=== PATIENT | female | born 1980 | race Caucasian/White ===

== ENCOUNTER 2017-04-14 09:59 | Emergency (ER) | payer MEDICAID ==
[2017-04-14 10:24] VITALS: TEMP 99; O2SAT 99
--- NOTE | 2017-04-14 10:33 | ED PDOC ---
Arrival/HPI - General Chief Complaint: Upper Extremity Problem/Injury Time Seen by Provider: 04/14/17 10:29 Historian: Patient - History of Present Illness Narrative History of Present Illness (Text): 04/14/17 10:30 This 36 yo female with pmh depression, presents to this ED c/o right shoulder pain x 6 days. Patient stated pain started after falling on the floor at work 6 days ago. Patient stated she slipped and fell down on her right side. Patient locates pain for right elbow to right shoulder. Denies wrist pain, neck pain, rosa, loc, n/v, weakness, or abnormal gait. Time/Duration: Other (see hpi) Context: Work Past Medical History - Provider Review Nursing Documentation Reviewed: Yes - Infectious Disease Hx of Infectious Diseases: None - Cardiac Hx Cardiac Disorders: No - Pulmonary Hx Respiratory Disorders: No - Neurological Hx Neurological Disorder: No - HEENT Hx HEENT Disorder: No - Renal Hx Renal Disorder: No - Endocrine/Metabolic Hx Endocrine Disorders: No - Hematological/Oncological Hx Blood Disorders: No - Integumentary Hx Dermatological Disorder: No - Musculoskeletal/Rheumatological Hx Musculoskeletal Disorders: No - Gastrointestinal Hx Gastrointestinal Disorders: No - Genitourinary/Gynecological Hx Genitourinary Disorders: No - Psychiatric Hx Psychophysiologic Disorder: Yes Hx Depression: Yes Hx Substance Use: No - Anesthesia Hx Anesthesia: No Family/Social History - Physician Review Nursing Documentation Reviewed: Yes Family/Social History: Other (noncontributory) Smoking Status: Never Smoked Hx Alcohol Use: No Hx Substance Use: No Allergies/Home Meds Allergies/Adverse Reactions: Allergies No Known Allergies Allergy (Verified 04/14/17 10:07) Home Medications: Home Meds Medication Instructions Recorded Confirmed Escitalopram [Lexapro] 20 mg PO DAILY 08/23/16 04/14/17 Quetiapine Fumarate [Seroquel] 50 mg PO DAILY 08/23/16 04/14/17 Review of Systems - Review of Systems Constitutional: Normal. absent: Fatigue, Weight Change, Fevers Eyes: Normal ENT: Normal Respiratory: Normal. absent: SOB, Cough Cardiovascular: Normal. absent: Chest Pain Gastrointestinal: Normal. absent: Abdominal Pain, Nausea, Vomiting Genitourinary Female: Normal Musculoskeletal: Other (see hpi) Skin: Normal Neurological: Normal Endocrine: Normal Hemo/Lymphatic: Normal Psychiatric: Normal Physical Exam Vital Signs Temp Pulse Resp BP Pulse Ox 11/02/17 12:24 69 18 115/74 99 04/14/17 11:10 75 18 114/79 99 04/14/17 10:02 99 F 76 16 112/75 99 Temperature: Afebrile Blood Pressure: Normal Pulse: Regular Respiratory Rate: Normal Appearance: Positive for: Well-Appearing, Non-Toxic, Comfortable Pain Distress: None Mental Status: Positive for: Alert and Oriented X 3 - Systems Exam Head: Present: Atraumatic, Normocephalic, Other (no raccoon sign. No nair sign) Pupils: Present: PERRL, Other (no hyphema) Extroacular Muscles: Present: EOMI. No: Entrapment Conjunctiva: Present: Normal Ears: Present: Normal, NORMAL TM, Normal Canal, Other (no hemotympanum). No: Erythema, TM Bulging, Fluid, TM Perf Mouth: Present: Moist Mucous Membranes Pharnyx: Present: Normal. No: ERYTHEMA, EXUDATE, TONSILS ENLARGED Nose (External): Present: Atraumatic Nose (Internal): Present: Normal Inspection Neck: Present: Normal Range of Motion, Trachea Midline. No: Meningeal Signs, MIDLINE TENDERNESS, Paraspinal Tenderness Respiratory/Chest: Present: Clear to Auscultation, Good Air Exchange. No: Respiratory Distress, Accessory Muscle Use, Wheezes, Tender to Palpation Cardiovascular: Present: Regular Rate and Rhythm, Normal S1, S2. No: Murmurs Abdomen: Present: Normal Bowel Sounds. No: Tenderness, Distention, Peritoneal Signs Back: Present: Normal Inspection. No: CVA Tenderness, Midline Tenderness, Paraspinal Tenderness, Pain with Leg Raise Upper Extremity: Present: NORMAL PULSES, Tenderness (right deltoid tenderness on palpation.), Neurovascularly Intact, Capillary Refill < 2s. No: Cyanosis, Edema Lower Extremity: Present: Normal Inspection, CALF TENDERNESS, NORMAL PULSES, Normal ROM, Neurovascularly Intact, Capillary Refill < 2 s. No: Edema Neurological: Present: GCS=15, CN II-XII Intact, Speech Normal, Motor Func Grossly Intact, Normal Sensory Function, Normal Cerebellar Funct, Gait Normal, Memory Normal Skin: Present: Warm, Dry, Normal Color. No: Rashes Psychiatric: Present: Alert, Oriented x 3, Normal Insight, Normal Concentration Medical Decision Making ED Course and Treatment: 04/14/17 12:50 Patient is resting comfortably, and is in no acute distress. Patient was instructed to follow up with PMD in 1-2 days for further evaluation. Arm sling was ordered Re-evaluation Time: 12:51 Reassessment Condition: Re-examined, Improved - RAD Interpretation Narrative RAD Interpretations (Text): 04/14/17 11:10 Shoulder x-rays: Questionable scapular Fx.? 04/14/17 12:50 This report is currently processing and HAS NOT BEEN OFFICIALLY SIGNED BY THE PHYSICIAN - ESTIMATED TIME OF APPROVAL IS 04/14/2017 12:54. PROCEDURE: CT of the right upper extremity without contrast HISTORY: posterior shoulder pain r/o scapular Fx. COMPARISON: TECHNIQUE: CT of the right shoulder was performed in the axial plane with sagittal and coronal reconstructions. FINDINGS: There is no fracture or bony abnormality. There is no joint effusion. There is a small amount of air in right deltoid muscle. Is there a laceration or stab wound this area? There is no hemorrhage or fluid collection. IMPRESSION: No evidence of fracture Radiology Orders: 04/14/17 10:37 SHOULDER RIGHT [RAD] Stat 04/14/17 11:09 EXT UPPER W/O CONTRAST RIGHT [CT] Stat - Medication Orders Current Medication Orders: Discontinued Medications Ketorolac Tromethamine (Toradol) 30 mg IM STAT STA Stop: 04/14/17 10:39 Last Admin: 04/14/17 10:57 Dose: 30 mg [facility] Pain Assessment Document 04/14/17 10:57 (Rec: 04/14/17 11:02 [facility]-[id number]) Pain Reassessment Is this a pain reassessment? Yes Sleep Is patient sleeping during reassessment? No Presence of Pain Presence of Pain Yes Pain Scale Used Pain Scale Used Numeric Location Left, Right or Bilateral Right Upper or Lower Upper Pain Location Body Site Shoulder Arm Elbow Description Description Constant Intensity of Pain at present 4 Acceptable Level of Pain 1 Radiation Location Right shoulder to elbow Pain Behavior Guarding Withdrawal from Touch Grasping Site Rubbing Site Restlessness Facial Grimacing Aggravating Factors ADL's Changing Position Exercise/Activity Contant Alleviating Factors/Management Medication Techniques Alleviating Factors Medication IM Administration Charges Document 04/14/17 10:57 KELLI (Rec: 04/14/17 11:02 [facility]-[id number]) Charges for Administration # of IM Administrations 1 Re-Assess: [facility] Pain Assessment Document 04/14/17 11:48 RG (Rec: 04/14/17 11:50 RG [id number]) Pain Reassessment Is this a pain reassessment? Yes Sleep Is patient sleeping during reassessment? No Presence of Pain Presence of Pain Yes Pain Scale Used Pain Scale Used Numeric Location Left, Right or Bilateral Right Upper or Lower Upper Pain Location Body Site Shoulder Arm Elbow Description Description Sharp Intensity of Pain at present 4 Acceptable Level of Pain 1 Radiation Location Right shoulder to elbow Pain Behavior Guarding Irritability Withdrawal from Touch Rubbing Site Restlessness Aggravating Factors ADL's Changing Position Contant Alleviating Factors/Management Medication Techniques Position Change Elevation Alleviating Factors Inactivity Disposition/Present on Arrival - Present on Arrival Any Indicators Present on Arrival: No History of DVT/PE: No History of Uncontrolled Diabetes: No Urinary Catheter: No History of Decub. Ulcer: No History Surgical Site Infection Following: None - Disposition Have Diagnosis and Disposition been Completed?: Yes Diagnosis: Shoulder pain, right Disposition: HOME/ ROUTINE Disposition Time: 12:51 Patient Plan: Discharge Condition: GOOD Discharge Instructions (ExitCare): Shoulder Pain (ED) Additional Instructions: Call private doctor for follow up visit in 1-2 days. Take medication as instructed with food. return to emergency i symptoms worsen. Do not drive or operate machinery when taking Valium Prescriptions: Diazepam [Valium] 2 mg PO DAILY #5 tablet Famotidine [Pepcid] 40 mg PO DAILY #10 tablet Naproxen 500 mg PO BID PRN #14 tab PRN Reason: Pain, Severe (8-10) Referrals: Leigha Prado MD [Primary Care Provider] - Follow up with primary Forms: [employer] (Amharic), WORK NOTE
[2017-04-14 11:10] VITALS: RESP 18
[2017-04-14 12:24] VITALS: BP 115/74; PULSE 69
--- NOTE | 2017-04-14 12:51 | CT ---
PROCEDURE: CT of the right upper extremity without contrast HISTORY: posterior shoulder pain r/o scapular Fx. COMPARISON: TECHNIQUE: CT of the right shoulder was performed in the axial plane with sagittal and coronal reconstructions. FINDINGS: There is no fracture or bony abnormality. There is no joint effusion. There is a small amount of air in right deltoid muscle. Is there a laceration or stab wound this area? There is no hemorrhage or fluid collection. IMPRESSION: No evidence of fracture
--- NOTE | 2017-04-14 13:55 | RAD ---
PROCEDURE: Radiographs of the Right Shoulder HISTORY: pain s/p fall COMPARISON: No prior. FINDINGS: BONES: Normal. No fracture. JOINTS: Normal. Glenohumeral and acromioclavicular joints preserved. No osteoarthritis. SOFT TISSUES: Normal. OTHER FINDINGS: None. IMPRESSION: Normal radiographs of the right shoulder.
== END 2017-04-14 13:02 | disposition home or self-care (01) ==
LOC: ED 09:59
DX: M25.511 Pain in right shoulder (principal)
CPT/HCPCS: 73030; 73200; 81025; 96372; 99285; J1885

== ENCOUNTER 2017-09-09 16:28 | Emergency (ER) | payer MEDICAID ==
[2017-09-09 16:39] VITALS: BP 115/73; PULSE 88; RESP 18; TEMP 98.3; O2SAT 99
[2017-09-09] MEDS ORDERED: Oxycodone/Acetaminophen 5/325 mg Tab PO STA (16:45)
--- NOTE | 2017-09-09 17:13 | ED PDOC ---
Arrival/HPI - General Chief Complaint: Back Pain Time Seen by Provider: 09/09/17 16:33 Historian: Patient - History of Present Illness Narrative History of Present Illness (Text): 09/09/17 17:07 36yo female with with PMHx of depression who present with complaint of right flank and back pain x 2days. States right sided back pain radiates to her lower leg. Pain is worse with movement. she reports history of kidney stone. Notes that her previous pain resolved without any intervention. she denies fever, chills, nausea, vomiting, trauma, urinary symptoms, trauma. States she is currently having her period. Past Medical History - Provider Review Nursing Documentation Reviewed: Yes - Infectious Disease Hx of Infectious Diseases: None - Cardiac Hx Cardiac Disorders: No - Pulmonary Hx Respiratory Disorders: No - Neurological Hx Neurological Disorder: No - HEENT Hx HEENT Disorder: No - Renal Hx Renal Disorder: No - Endocrine/Metabolic Hx Endocrine Disorders: No - Hematological/Oncological Hx Blood Disorders: No - Integumentary Hx Dermatological Disorder: No - Musculoskeletal/Rheumatological Hx Musculoskeletal Disorders: No - Gastrointestinal Hx Gastrointestinal Disorders: No - Genitourinary/Gynecological Hx Genitourinary Disorders: No - Psychiatric Hx Psychophysiologic Disorder: Yes Hx Depression: Yes Hx Substance Use: No - Anesthesia Hx Anesthesia: No Family/Social History - Physician Review Nursing Documentation Reviewed: Yes Family/Social History: Unknown Family HX Smoking Status: Never Smoked Hx Alcohol Use: No Hx Substance Use: No Allergies/Home Meds Allergies/Adverse Reactions: Allergies No Known Allergies Allergy (Verified 09/09/17 16:37) Review of Systems - Physician Review All systems were reviewed & negative as marked: Yes - Review of Systems Constitutional: Normal Eyes: Normal ENT: Normal Respiratory: Normal Cardiovascular: Normal Gastrointestinal: Abdominal Pain. absent: Constipation, Diarrhea, Nausea, Vomiting, Hematochezia, Hematemesis Genitourinary Female: Normal Musculoskeletal: Back Pain Skin: Normal Neurological: Normal Endocrine: Normal Hemo/Lymphatic: Normal Psychiatric: Normal Physical Exam Vital Signs Reviewed: Yes Vital Signs Temp Pulse Resp BP Pulse Ox 09/09/17 16:34 98.3 F 88 18 115/73 99 Temperature: Afebrile Blood Pressure: Normal Pulse: Regular Respiratory Rate: Normal Appearance: Positive for: Well-Appearing, Non-Toxic, Comfortable Pain Distress: None Mental Status: Positive for: Alert and Oriented X 3 - Systems Exam Head: Present: Atraumatic, Normocephalic Pupils: Present: PERRL Extroacular Muscles: Present: EOMI Conjunctiva: Present: Normal Mouth: Present: Moist Mucous Membranes Neck: Present: Normal Range of Motion Respiratory/Chest: Present: Clear to Auscultation, Good Air Exchange. No: Respiratory Distress, Accessory Muscle Use Cardiovascular: Present: Regular Rate and Rhythm, Normal S1, S2. No: Murmurs Abdomen: Present: Tenderness (right flank tenderness), Normal Bowel Sounds. No : Distention, Peritoneal Signs, Rebound, Guarding, McBurney's Point Tender, Rovsing's Sign Present Back: Present: Paraspinal Tenderness (right paraspinous tenderness), Pain with Leg Raise (right leg). No: CVA Tenderness, Midline Tenderness Upper Extremity: Present: Normal Inspection. No: Cyanosis, Edema Lower Extremity: Present: Normal Inspection. No: Edema Neurological: Present: GCS=15, CN II-XII Intact, Speech Normal Skin: Present: Warm, Dry, Normal Color. No: Rashes Psychiatric: Present: Alert, Oriented x 3, Normal Insight, Normal Concentration Medical Decision Making ED Course and Treatment: 09/09/17 18:44 Pt's pain is reproducible in ED. Her symptom and exam is more like MS in nature. Pt however reprot history of kidney stone and abdominal/pelvis CT was ordered to r/o renal colic. Abdominal /pelvis CT IMPRESSION: Incidental horseshoe kidney. No evidence of urinary calculus or urinary tract obstruction. Pt have UTI. she was treated with Keflex. Result was DW the pt. Her pain improved in ED with medication. she was ambulatory and have no focal neurological deficit. She was DC and referred to her PDM. - Lab Interpretations Lab Results: Lab Results 09/09/17 17:20: Urine Color Yellow, Urine Appearance Sl cloudy, Urine pH 7.0, Ur Specific [place] 1.015, Urine Protein Negative, Urine Glucose (UA) Negative, Urine Ketones Negative, Urine Blood Moderate H, Urine Nitrate Negative, Urine Bilirubin Negative, Urine Urobilinogen 0.2, Ur Leukocyte Esterase Small H, Urine RBC 2 - 5, Urine WBC 5 - 10, Ur Epithelial Cells 6 - 8, Urine Bacteria Few - RAD Interpretation Radiology Orders: 09/09/17 16:44 ABD & PELVIS W/O PO OR IV CONT [CT] Stat - Medication Orders Current Medication Orders: Discontinued Medications Cephalexin Monohydrate (Keflex) 500 mg PO STAT STA PRN Reason: Protocol Stop: 09/09/17 18:29 Last Admin: 09/09/17 18:32 Dose: 500 mg Ketorolac Tromethamine (Toradol) 60 mg IM STAT STA Stop: 09/09/17 17:07 Last Admin: 09/09/17 17:34 Dose: 60 mg MAR Pain Assessment Document 09/09/17 17:34 OCS (Rec: 09/09/17 17:35 OCS [id number]) Pain Reassessment Is this a pain reassessment? No Sleep Is patient sleeping during reassessment? No Presence of Pain Presence of Pain Yes Pain Scale Used Pain Scale Used Numeric Location Left, Right or Bilateral Right Upper or Lower Lower Pain Location Body Site Back Description Description Constant Intensity of Pain at present 10 Pain Behavior Guarding Irritability Facial Grimacing Aggravating Factors ADL's IM Administration Charges Document 09/09/17 17:34 OCS (Rec: 09/09/17 17:35 OCS [id number]) Injection Site MAR Injection Site Left Deltoid Charges for Administration # of IM Administrations 1 Oxycodone/Acetaminophen (Percocet 5/325 Mg Tab) 1 tab PO STAT STA Stop: 09/09/17 16:46 Last Admin: 09/09/17 17:31 Dose: 1 tab MAR Pain Assessment Document 09/09/17 17:31 OCS (Rec: 09/09/17 17:34 OCS [id number]) Pain Reassessment Is this a pain reassessment? No Sleep Is patient sleeping during reassessment? No Presence of Pain Presence of Pain Yes Pain Scale Used Pain Scale Used Numeric Location Left, Right or Bilateral Right Upper or Lower Lower Pain Location Body Site Back Description Description Constant Intensity of Pain at present 10 Pain Behavior Guarding Facial Grimacing Aggravating Factors ADL's Disposition/Present on Arrival - Present on Arrival Any Indicators Present on Arrival: No History of DVT/PE: No History of Uncontrolled Diabetes: No Urinary Catheter: No History of Decub. Ulcer: No History Surgical Site Infection Following: None - Disposition Have Diagnosis and Disposition been Completed?: Yes Diagnosis: UTI (urinary tract infection), Back pain Disposition: HOME/ ROUTINE Disposition Time: 18:30 Patient Plan: Discharge Patient Problems: Current Active Problems Problem Status Onset Back pain Acute UTI (urinary tract infection) Acute Condition: STABLE Discharge Instructions (ExitCare): Urinary Tract Infections in Adults Additional Instructions: Follow up with your doctor Return to ED for any new or worsening symptoms Prescriptions: Cephalexin [Keflex] 500 mg PO TID #21 capsule Cyclobenzaprine [Cyclobenzaprine HCl] 10 mg PO TID #12 tab Ibuprofen [Motrin Tab] 600 mg PO Q6 #20 tab Referrals: Leigha Prado MD [Primary Care Provider] - Follow up with primary Forms: [employer] (Mongolian)
[2017-09-09 17:39] LABS: URINE BILIRUBIN NEGATIVE (NEGATIVE); URINE BLOOD MODERATE (NEGATIVE); URINE GLUCOSE (UA) NEGATIVE (NEGATIVE); URINE LEUKOCYTE ESTERASE SMALL Leu/uL (NEGATIVE); URINE PROTEIN NEGATIVE mg/dL (<30 mg/dL); URINE UROBILINOGEN 0.2 E.U./dL (<1 E.U./dL)
[2017-09-09 17:40] LABS: URINE APPEARANCE SL CLOUDY (CLEAR); URINE COLOR YELLOW (YELLOW)
[2017-09-09 17:50] LABS: URINE BACTERIA FEW (NEG)
--- NOTE | 2017-09-09 18:22 | CT ---
PROCEDURE: CT Abdomen and Pelvis without intravenous contrast HISTORY: right flank COMPARISON: None. TECHNIQUE: Without contrast.. Contrast Dose: 0 Radiation dose: Total exam DLP = Total exam DLP = 493.51 mGy-cm. This CT exam was performed using one or more of the following dose reduction techniques: Automated exposure control, adjustment of the mA and/or kV according to patient size, and/or use of iterative reconstruction technique. FINDINGS: LOWER THORAX: Unremarkable. LIVER: Unremarkable. No gross lesion or ductal dilatation. GALLBLADDER AND BILE DUCTS: Unremarkable. PANCREAS: Unremarkable. No gross lesion or ductal dilatation. SPLEEN: Unremarkable. ADRENALS: Unremarkable. No mass. KIDNEYS AND URETERS: Horseshoe kidney noted. No renal mass, calculus or hydronephrosis. No hydroureter or ureteral calculus. VASCULATURE: Unremarkable. No aortic aneurysm. BOWEL: Unremarkable. No obstruction. No gross mural thickening. APPENDIX: Unremarkable. PERITONEUM: Unremarkable. No free fluid. No free air. LYMPH NODES: Unremarkable. No enlarged lymph nodes. BLADDER: Nondistended REPRODUCTIVE: Normal retroverted uterus BONES: No acute fracture. OTHER FINDINGS: None. IMPRESSION: Incidental horseshoe kidney. No evidence of urinary calculus or urinary tract obstruction.
== END 2017-09-09 18:50 | disposition home or self-care (01) ==
LOC: ED 16:28
DX: N39.0 Urinary tract infection, site not specified (principal); M54.9 Dorsalgia, unspecified
CPT/HCPCS: 74176; 81001; 87086; 96372; 99282; J1885